=== PATIENT | female | born 1950 | race Caucasian/White ===

== ENCOUNTER 2018-08-30 06:29 | Day surgery (SDC) | payer OTHER ==
[2018-08-24 17:11] VITALS: BMI 21.7
[2018-08-30] MEDS ORDERED: ERYTHROMYCIN 0.5% OPHTHALMIC OINTMENT 3.5 GM TUBE ONE (07:12)
[2018-08-30] MEDS ORDERED: BUPIVACAINE HCL/PF 0.5% (5MG/ML) 10 ML VIAL ONE (07:13)
[2018-08-30] MEDS ORDERED: TETRACAINE 0.5% OPHTH SOLN 2 ML BOTTLE ONE (07:13)
[2018-08-30] MEDS ORDERED: POVIDONE-IODINE 5% OPHTHALMIC PREP 30 ML SOLUTION ONE (07:13)
[2018-08-30] MEDS ORDERED: LIDOCAINE 1%/EPI 1:100000 (20 ML MULTI DOSE VIAL) ONE (07:13)
[2018-08-30] MEDS ORDERED: MIDAZOLAM HCL 2 MG/2 ML SINGLE DOSE VIAL ONE (07:49)
[2018-08-30] MEDS ORDERED: PROPOFOL 20 ML ONE ×3 (07:49)
[2018-08-30] MEDS ORDERED: SUCCINYLCHOLINE CHLORIDE 200 MG/10 ML VIAL ONE (07:49)
[2018-08-30] MEDS ORDERED: KETOROLAC TROMETHAMINE 30 MG/1 ML VIAL ONE (07:55)
[2018-08-30] MEDS ORDERED: ONDANSETRON 4 MG/2 ML VIAL ONE (07:55)
[2018-08-30] MEDS ORDERED: ceFAZolin SODIUM 1 GM VIAL ONE (07:55)
[2018-08-30] MEDS ORDERED: DEXAMETHASONE SOD PHOSPHATE 4 MG/1 ML VIAL ONE (07:55)
[2018-08-30] MEDS ORDERED: ONDANSETRON 4 MG/2 ML VIAL IVPUSH PRN (09:30)
[2018-08-30] MEDS ORDERED: PROMETHAZINE HCL 25 MG/1 ML VIAL IVPUSH PRN (09:30)
[2018-08-30] MEDS ORDERED: oxyCODONE HCL 5 MG TABLET PO PRN ×2 (09:30)
--- NOTE | 2018-08-30 10:39 | OP ---
DATE OF OPERATION: 08/30/2018 PREOPERATIVE DIAGNOSIS: Basal cell carcinoma right lower lid. POSTOPERATIVE DIAGNOSIS: Basal cell carcinoma right lower lid. PROCEDURE: Reconstruction of right lower lid with a final canthal rotational flap and skin muscle flap. SURGEON: Alma Quinones MD ANESTHESIA: Local with sedation. COMPLICATIONS: None. ESTIMATED BLOOD LOSS: 3-5 mL. OPERATIVE REPORT: The patient was brought to the operating room and placed on the operating room table. Vital signs were monitored by Anesthesia. The patient was placed with both eyes open. The defect in the right lower lid was photographed demonstrating approximately 60% defect in the right lower lid with a small remnant of lateral right lobe remaining. A high arch lateral canthal rotational flap angling towards the tail of the brow was marked. A time-out was performed, and intravenous sedation was administered following which a 50/50 mixture of 2% Xylocaine, 1:100,000 epinephrine, 0.5% Marcaine was injected diffusely throughout the flap area and throughout the right lower lid and lateral canthus down to periosteum. A total of 6 mL was administered. The high arch lateral rotational flap was then incised through the skin and muscle layer and then the muscle layer was dissected off of the superior rick of the lateral canthal tendon. The inferior rick of the lateral canthal tendon was released at the orbital rim as were the inferolateral eyelid retractors, and a wide undermine was carried out in the submuscular plane in order to allow complete movement of the lateral remnant of the eyelid nasally. Once this was mobilized, hemostasis was achieved with minimal cautery, and antibiotic irrigation was used. The tarsal remnant was anastomosed to the medial portion of the eyelid with 3 interrupted 6-0 silk sutures, 1 through the anterior lash line, 1 through the posterior mucocutaneous junction, and vertical mattress through the quiles line. These were tied reconstructing the margin; however, there was a significant defect in the lower lid at this point as fully 60% of the eyelid, if not 70% of the eyelid, had been removed. Therefore, a skin flap was developed in the eyelid by dissecting the orbicularis over the overlying skin so that the skin could be elevated in a triangular fashion without tension, and this advanced skin flap was allowed to fill the defect in the right lower lid on stretch as the marginal sutures were clamped and hemostat superiorly, conservatively tailored, and then sutured into place with interrupted and running 6-0 plain suture with plastic technique removing a standard cutaneous deformity at the inferolateral edge of the skin flap. The horizontal width of the canthal lateral edge was measured at 31 mm, and therefore, the canthus was reconstructed at a 31 mm distance from the medial commissure. This was marked. A 5-0 chromic suture was passed through the wound and the quiles line in the upper lid and advanced skin muscle flap in the lower lid and tied in the lateral canthus recreating the lateral canthus with a nice acute angle at a 31-mm herlinda. Lateral to this, the skin flap was supported with a 5-0 Vicryl suture to the fascial plane at the lateral orbital rim taking any tension off of the flap inferiorly. An almond shape was now meticulously tailored with Jesu scissors curving the skin at the lateral canthus. The skin was reformed at the lateral canthus with interrupted 6-0 plain suture. The muscle layer was closed with buried 5-0 chromic, and the skin was then closed with interrupted 6-0 plain suture for the remainder of the lateral rotational flap. Erythromycin ointment was placed in the eye and sutures of the right lower lid anastomosis and lateral canthal flaps, and the patient was taken to the recovery room in stable condition. ALMA QUINONES M.D. [id number]
[2018-08-30 15:54] VITALS: BP 132/74; PULSE 68; TEMP 97.6
== END 2018-08-30 10:00 | disposition home or self-care (01) ==
LOC: FASU 06:29
PROVIDERS: ATTEND Ophthalmology
PROC: 0JB10ZZ Excision of Face Subcutaneous Tissue and Fascia, Open Approach (ICD-10-PCS; 2018-08-30)
PROC: 0KX10ZZ Transfer Facial Muscle, Open Approach (ICD-10-PCS; 2018-08-30)
PROC: 0JX10ZB Transfer Face Subcutaneous Tissue and Fascia with Skin and Subcutaneous Tissue, Open Approach (ICD-10-PCS; principal; 2018-08-30 07:30)
DX: C44.1122 Basal cell carcinoma of skin of right lower eyelid, including canthus (principal)

== ENCOUNTER 2018-09-20 06:08 | Day surgery (SDC) | payer OTHER ==
[2018-09-14 10:09] VITALS: BMI 21.6
[2018-09-20] MEDS ORDERED: PROPOFOL 20 ML ONE ×2 (07:12)
[2018-09-20] MEDS ORDERED: MIDAZOLAM HCL 2 MG/2 ML SINGLE DOSE VIAL ONE ×2 (07:12)
[2018-09-20] MEDS ORDERED: ERYTHROMYCIN 0.5% OPHTHALMIC OINTMENT 3.5 GM TUBE ONE (07:15)
[2018-09-20] MEDS ORDERED: POVIDONE-IODINE 5% OPHTHALMIC PREP 30 ML SOLUTION ONE (07:16)
[2018-09-20] MEDS ORDERED: LIDOCAINE 1%/EPI 1:100000 (20 ML MULTI DOSE VIAL) ONE (07:16)
[2018-09-20] MEDS ORDERED: BUPIVACAINE HCL/PF 0.5% (5MG/ML) 10 ML VIAL ONE (07:16)
[2018-09-20] MEDS ORDERED: TETRACAINE 0.5% OPHTH SOLN 2 ML BOTTLE ONE (07:16)
[2018-09-20] MEDS ORDERED: ceFAZolin SODIUM 1 GM VIAL ONE (08:15)
[2018-09-20] MEDS ORDERED: GLYCOPYRROLATE 0.2 MG/1 ML VIAL ONE (08:15)
[2018-09-20] MEDS ORDERED: ONDANSETRON 4 MG/2 ML VIAL ONE (09:09)
[2018-09-20] MEDS ORDERED: DEXAMETHASONE SOD PHOSPHATE 4 MG/1 ML VIAL ONE (09:09)
[2018-09-20] MEDS ORDERED: oxyCODONE HCL 5 MG TABLET PO PRN (09:32)
[2018-09-20] MEDS ORDERED: ONDANSETRON 4 MG/2 ML VIAL IVPUSH PRN (09:32)
[2018-09-20 09:41] VITALS: TEMP 97.2
[2018-09-20] MEDS ORDERED: LACTATED RINGERS SOLUTION 1,000 ML IV SCH (09:45)
[2018-09-20 09:46] VITALS: PULSE 72
[2018-09-20 10:45] VITALS: BP 143/66
--- NOTE | 2018-09-20 14:02 | OP ---
DATE OF OPERATION: 09/20/2018 PREOPERATIVE DIAGNOSIS: Extensive defect, left lower lid status post excision of basal cell carcinoma. POSTOPERATIVE DIAGNOSIS: Extensive defect, left lower lid status post excision of basal cell carcinoma. PROCEDURE: 1. Debridement and tailoring of defect, left lower lid. 2. Examination under anesthesia. 3. Full-thickness skin graft from left post-auricular region to left lower lid. 4. Mario suture, left lower lid. SURGEON: Alma Quinones MD ANESTHESIA: Local with sedation. COMPLICATIONS: None. ESTIMATED BLOOD LOSS: 1-2 mL OPERATIVE REPORT: Patient brought to the operating room, placed on the operating room table. Vital signs monitored by Anesthesia. Tetracaine was placed in both eyes. The patch was removed, and the wound was photographed. Intravenous sedation was administered. A timeout was performed. Then, the wound was measured with a ruler, measuring 30 mm in horizontal width x 8-10 mm vertically. It was determined that it would be impossible to close this wound with simple advancement flaps, and rotation flaps would be rather extensive in a patient with smoking history. Therefore, it was felt that a full-thickness skin graft would be the best approach. Double-arm 4-0 silk was then passed through the skin and quiles line just lateral to the central left lower lid, clamped in a hemostat superiorly. It was also passed through a number 8-[place] bolster for subsequent use as a Mario suture. Patient was prepped and draped in usual sterile fashion before this suture was placed, exposing the ear and both eyes. The wound was debrided with a No. 10 scraper and was elevated with 15 blade, and the edges of the wound were elevated off of the line of granulation. The left ear was secured to the preauricular region with 4-0 silk sutures to the preauricular region and the helix. Two of these were placed. Template was then placed after antibiotic irrigation was used copiously over the defect in the lower lid and the lid on stretch with the traction suture. Template was placed and tailored to the defect. This was then marked for its superior edge and placed along the post-auricular reflection onto the scalp. It was marked with a marking pen and injected with 2% Xylocaine and 1:100,000 epinephrine for 3-4 mL, and time was allowed for hemostasis to occur. A 15 blade was used to incise the perimeter of the graft. The graft was then harvested with a Jesu scissor in the subcutaneous plane. A small amount of cautery was used on the donor site, and the donor site was then closed with running, locking 3-0 chromic and supplemented with interrupted 3-0 chromic sutures, and the helix sutures were removed. Attention was now turned to the graft itself which was thinned of all subcutaneous tissue. It was then pie crusted with a number-11 blade, and with the lid on stretch, it was sutured into position, orienting in the thin skin toward the superior edge of the eyelid and sutured with the perimeter interrupted 6-0 plain suture throughout with plastic technique. Strip Telfa and a dental roll were then placed over the graft with the lid on stretch. The traction suture was secured to the forehead with Mastisol and Steri-Strips, and some strip Telfa was placed over the graft as was erythromycin ointment was placed in the eye and on the graft. Then, this was tied over with 4-0 silk sutures with being careful not to place eversion-type tension on the lower eyelid margin, and then, strip Telfa and eye pads and fluff were placed over the closed eye and over the graft site. This was secured with Mastisol and paper tape to the forehead and cheek. Xeroform and gauze were placed behind the ear, and the patient was taken to the recovery room in stable condition. ALMA QUINONES M.D. [id number]
== END 2018-09-20 10:35 | disposition home or self-care (01) ==
LOC: FASU 06:08
PROVIDERS: ATTEND Ophthalmology
PROC: 0HB3XZZ Excision of Left Ear Skin, External Approach (ICD-10-PCS; 2018-09-20)
PROC: 0HR1X73 Replacement of Face Skin with Autologous Tissue Substitute, Full Thickness, External Approach (ICD-10-PCS; principal; 2018-09-20 07:30)
DX: C44.1192 Basal cell carcinoma of skin of left lower eyelid, including canthus (principal)
CPT/HCPCS: 94760